=== PATIENT | male | born 1980 | race Caucasian/White ===

== ENCOUNTER 2021-09-06 16:55 | Inpatient (IN) | payer OTHER ==
[2021-09-06 20:44] VITALS: BMI 27.8
[2021-09-06] MEDS ORDERED: guaiFENesin 200 MG/10 ML 10 ML UNIT-DOSE CUPS PO PRN (21:03)
[2021-09-06] MEDS ORDERED: NICOTINE POLACRILEX 2 MG GUM BC PRN (21:03)
[2021-09-06] MEDS ORDERED: ACETAMINOPHEN 325 MG TABLET (FP) PO PRN (21:03)
[2021-09-06] MEDS ORDERED: P-EPHED 60MG/TRIPROLIDI 2.5MG TABLET PO PRN (21:03)
[2021-09-06] MEDS ORDERED: MAGNESIUM HYDROX 2400MG/30ML ORAL SUSPENSION 30 ML CUP PO PRN (21:03)
[2021-09-06] MEDS ORDERED: MAG HYDROX/AL HYDROX/SIMETH 30 ML UNIT-DOSE CUP PO PRN (21:03)
[2021-09-06] MEDS ORDERED: LOPERAMIDE HCL 2 MG CAPSULE PO PRN (21:03)
[2021-09-06] MEDS ORDERED: MAGNESIUM CITRATE 300 ML BOTTLE PO PRN (21:03)
[2021-09-06] MEDS ORDERED: MELATONIN 5 MG TABLETS PO SCH (22:00)
[2021-09-06] MEDS ORDERED: ALBUTEROL SO4 HFA INHALER IH PRN (22:55)
[2021-09-07] MEDS: MELATONIN 5 MG TABLETS PO SCH ×2 (03:01→21:39)
[2021-09-07] MEDS: THIAMINE HCL 100 MG TABLET (FP) PO SCH ×2 (03:06→21:38)
[2021-09-07 10:00] LABS: HEMATOCRIT 41.4 % (35.4-49); HEMOGLOBIN 14.4 GM/dL (11.7-16.9); MCH 31.6 pg (25.7-33.7); MCHC 34.8 g/dl (32.0-35.9); MEAN CELL VOLUME 90.9 fl (80-96); MEAN PLT VOLUME 8.7 fl (7.5-11.1); PLATELET COUNT 216 10^3/uL (134-434); RBC 4.56 M/mm3 (4.00-5.60); RDW 12.7 % (11.9-15.9); WHITE BLOOD COUNT 7.9 K/mm3 (4.0-10.0)
[2021-09-07 10:05] LABS: ALBUMIN 3.5 g/dl (3.4-5.0)
[2021-09-07 10:06] LABS: PH,URINE 6.5 (5.0-8.0); URINE APPEARANCE CLEAR; URINE BILIRUBIN NEGATIVE (NEGATIVE); URINE COLOR YELLOW; URINE GLUCOSE (UA) NEGATIVE (NEGATIVE); URINE KETONE NEGATIVE (NEGATIVE); URINE LEUK ESTERASE NEGATIVE (NEGATIVE); URINE NITRITE NEGATIVE (NEGATIVE); URINE PROTEIN NEGATIVE (NEGATIVE); URINE UROBILINOGEN 0.2 mg/dL (0.2-1.0)
[2021-09-07 10:06] LABS: BLOOD UREA NITROGEN 15.6 mg/dL (7-18)
[2021-09-07 10:09] LABS: CREATININE 0.9 mg/dL (0.55-1.3)
[2021-09-07 10:10] LABS: BILIRUBIN,TOTAL 0.6 mg/dL (0.2-1); TOT PROT 6.3 g/dl (6.4-8.2)
[2021-09-07] MEDS: PRENATAL VITAMINS W/ FOLIC ACID TABLET (FP) PO SCH (10:31)
[2021-09-07] MEDS: BENZTROPINE MESYLATE 1 MG TABLET PO SCH ×2 (10:32→21:38)
[2021-09-07] MEDS: LITHIUM CARBONATE 300 MG CAPSULE PO SCH ×2 (14:48→21:38)
[2021-09-08] MEDS: LITHIUM CARBONATE 300 MG CAPSULE PO SCH ×3 (07:25→21:38)
[2021-09-08] MEDS: PRENATAL VITAMINS W/ FOLIC ACID TABLET (FP) PO SCH (10:44)
[2021-09-08] MEDS: BENZTROPINE MESYLATE 1 MG TABLET PO SCH ×2 (10:44→21:37)
[2021-09-08] MEDS: THIAMINE HCL 100 MG TABLET (FP) PO SCH (21:38)
[2021-09-08] MEDS: MELATONIN 5 MG TABLETS PO SCH (21:38)
[2021-09-09] MEDS: LITHIUM CARBONATE 300 MG CAPSULE PO SCH ×3 (07:09→21:25)
[2021-09-09] MEDS: PRENATAL VITAMINS W/ FOLIC ACID TABLET (FP) PO SCH (10:02)
[2021-09-09] MEDS: BENZTROPINE MESYLATE 1 MG TABLET PO SCH ×2 (10:02→21:25)
[2021-09-09] MEDS: NICOTINE 7 MG/24 HOURS TOPICAL PATCH TD PRN (10:27)
[2021-09-09] MEDS: MELATONIN 5 MG TABLETS PO SCH (21:26)
[2021-09-09] MEDS: THIAMINE HCL 100 MG TABLET (FP) PO SCH (21:26)
[2021-09-10] MEDS: LITHIUM CARBONATE 300 MG CAPSULE PO SCH ×3 (07:15→21:42)
[2021-09-10] MEDS: PRENATAL VITAMINS W/ FOLIC ACID TABLET (FP) PO SCH (10:28)
[2021-09-10] MEDS: BENZTROPINE MESYLATE 1 MG TABLET PO SCH ×2 (10:29→21:42)
[2021-09-10] MEDS: NICOTINE 7 MG/24 HOURS TOPICAL PATCH TD PRN (10:30)
[2021-09-10] MEDS: THIAMINE HCL 100 MG TABLET (FP) PO SCH (21:42)
[2021-09-10] MEDS: MELATONIN 5 MG TABLETS PO SCH (21:42)
[2021-09-11] MEDS: LITHIUM CARBONATE 300 MG CAPSULE PO SCH ×3 (06:31→21:22)
[2021-09-11] MEDS: PRENATAL VITAMINS W/ FOLIC ACID TABLET (FP) PO SCH (09:46)
[2021-09-11] MEDS: BENZTROPINE MESYLATE 1 MG TABLET PO SCH ×2 (09:46→21:22)
[2021-09-11] MEDS: NICOTINE 7 MG/24 HOURS TOPICAL PATCH TD PRN (09:47)
[2021-09-11] MEDS: THIAMINE HCL 100 MG TABLET (FP) PO SCH (21:22)
[2021-09-11] MEDS: MELATONIN 5 MG TABLETS PO SCH (21:22)
[2021-09-12] MEDS: LITHIUM CARBONATE 300 MG CAPSULE PO SCH ×3 (08:03→21:09)
[2021-09-12] MEDS: BENZTROPINE MESYLATE 1 MG TABLET PO SCH ×2 (10:27→21:09)
[2021-09-12] MEDS: PRENATAL VITAMINS W/ FOLIC ACID TABLET (FP) PO SCH (10:27)
[2021-09-12] MEDS: THIAMINE HCL 100 MG TABLET (FP) PO SCH (21:09)
[2021-09-12] MEDS: MELATONIN 5 MG TABLETS PO SCH (21:09)
[2021-09-13] MEDS: LITHIUM CARBONATE 300 MG CAPSULE PO SCH ×3 (07:01→21:16)
[2021-09-13] MEDS: PRENATAL VITAMINS W/ FOLIC ACID TABLET (FP) PO SCH (09:50)
[2021-09-13] MEDS: BENZTROPINE MESYLATE 1 MG TABLET PO SCH ×2 (09:50→21:17)
[2021-09-13] MEDS: NICOTINE 7 MG/24 HOURS TOPICAL PATCH TD PRN (14:24)
[2021-09-13] MEDS: MELATONIN 5 MG TABLETS PO SCH (21:16)
[2021-09-13] MEDS: THIAMINE HCL 100 MG TABLET (FP) PO SCH (21:16)
[2021-09-14] MEDS: LITHIUM CARBONATE 300 MG CAPSULE PO SCH ×3 (06:49→21:23)
[2021-09-14] MEDS: PRENATAL VITAMINS W/ FOLIC ACID TABLET (FP) PO SCH (10:32)
[2021-09-14] MEDS: BENZTROPINE MESYLATE 1 MG TABLET PO SCH ×2 (10:32→21:23)
[2021-09-14] MEDS: hydrOXYzine PAMOATE 25 MG CAPSULE (FP) PO PRN (13:09)
[2021-09-14] MEDS: MELATONIN 5 MG TABLETS PO SCH (21:23)
[2021-09-14] MEDS: THIAMINE HCL 100 MG TABLET (FP) PO SCH (21:23)
[2021-09-14] MEDS: NICOTINE 10 MG CARTRIDGE (INHALER) IH PRN (21:24)
[2021-09-15] MEDS: LITHIUM CARBONATE 300 MG CAPSULE PO SCH ×3 (06:32→21:47)
[2021-09-15] MEDS: BENZTROPINE MESYLATE 1 MG TABLET PO SCH ×2 (09:55→21:47)
[2021-09-15] MEDS: PRENATAL VITAMINS W/ FOLIC ACID TABLET (FP) PO SCH (09:55)
[2021-09-15] MEDS: hydrOXYzine PAMOATE 25 MG CAPSULE (FP) PO PRN ×2 (09:55→21:49)
[2021-09-15] MEDS: THIAMINE HCL 100 MG TABLET (FP) PO SCH (21:47)
[2021-09-15] MEDS: MELATONIN 5 MG TABLETS PO SCH (21:47)
[2021-09-16] MEDS: LITHIUM CARBONATE 300 MG CAPSULE PO SCH ×3 (06:22→21:04)
[2021-09-16] MEDS: BENZTROPINE MESYLATE 1 MG TABLET PO SCH ×2 (10:20→21:04)
[2021-09-16] MEDS: PRENATAL VITAMINS W/ FOLIC ACID TABLET (FP) PO SCH (10:20)
[2021-09-16] MEDS: hydrOXYzine PAMOATE 25 MG CAPSULE (FP) PO PRN (10:22)
[2021-09-16] MEDS: MELATONIN 5 MG TABLETS PO SCH (21:04)
[2021-09-16] MEDS: THIAMINE HCL 100 MG TABLET (FP) PO SCH (21:04)
[2021-09-17] MEDS: LITHIUM CARBONATE 300 MG CAPSULE PO SCH ×3 (06:44→21:56)
[2021-09-17] MEDS: PRENATAL VITAMINS W/ FOLIC ACID TABLET (FP) PO SCH (10:09)
[2021-09-17] MEDS: BENZTROPINE MESYLATE 1 MG TABLET PO SCH ×2 (10:09→21:57)
[2021-09-17] MEDS: hydrOXYzine PAMOATE 25 MG CAPSULE (FP) PO PRN (10:11)
[2021-09-17] MEDS: THIAMINE HCL 100 MG TABLET (FP) PO SCH (21:57)
[2021-09-17] MEDS: MELATONIN 5 MG TABLETS PO SCH (21:57)
[2021-09-18] MEDS: LITHIUM CARBONATE 300 MG CAPSULE PO SCH ×3 (06:51→21:06)
[2021-09-18] MEDS: PRENATAL VITAMINS W/ FOLIC ACID TABLET (FP) PO SCH (10:50)
[2021-09-18] MEDS: BENZTROPINE MESYLATE 1 MG TABLET PO SCH ×2 (10:51→21:05)
[2021-09-18] MEDS: hydrOXYzine PAMOATE 25 MG CAPSULE (FP) PO PRN (10:51)
[2021-09-18] MEDS: IBUPROFEN 400 MG TABLET (FP) PO PRN (18:29)
[2021-09-18] MEDS: MELATONIN 5 MG TABLETS PO SCH (21:06)
[2021-09-18] MEDS: THIAMINE HCL 100 MG TABLET (FP) PO SCH (21:06)
[2021-09-19] MEDS: LITHIUM CARBONATE 300 MG CAPSULE PO SCH ×3 (06:47→21:08)
[2021-09-19] MEDS: BENZTROPINE MESYLATE 1 MG TABLET PO SCH ×2 (09:46→21:07)
[2021-09-19] MEDS: PRENATAL VITAMINS W/ FOLIC ACID TABLET (FP) PO SCH (09:46)
[2021-09-19] MEDS: hydrOXYzine PAMOATE 25 MG CAPSULE (FP) PO PRN (09:47)
[2021-09-19] MEDS: THIAMINE HCL 100 MG TABLET (FP) PO SCH (21:08)
[2021-09-19] MEDS: MELATONIN 5 MG TABLETS PO SCH (21:08)
[2021-09-20] MEDS: LITHIUM CARBONATE 300 MG CAPSULE PO SCH ×3 (06:43→21:24)
[2021-09-20] MEDS: PRENATAL VITAMINS W/ FOLIC ACID TABLET (FP) PO SCH (10:12)
[2021-09-20] MEDS: BENZTROPINE MESYLATE 1 MG TABLET PO SCH ×2 (10:12→21:24)
[2021-09-20] MEDS: hydrOXYzine PAMOATE 25 MG CAPSULE (FP) PO PRN ×2 (10:14→13:12)
[2021-09-20] MEDS: THIAMINE HCL 100 MG TABLET (FP) PO SCH (21:24)
[2021-09-20] MEDS: MELATONIN 5 MG TABLETS PO SCH (21:24)
[2021-09-21] MEDS: LITHIUM CARBONATE 300 MG CAPSULE PO SCH ×3 (06:23→21:30)
[2021-09-21] MEDS: PRENATAL VITAMINS W/ FOLIC ACID TABLET (FP) PO SCH (09:58)
[2021-09-21] MEDS: BENZTROPINE MESYLATE 1 MG TABLET PO SCH ×2 (09:58→21:30)
[2021-09-21] MEDS: hydrOXYzine PAMOATE 25 MG CAPSULE (FP) PO PRN (09:58)
[2021-09-21] MEDS: MELATONIN 5 MG TABLETS PO SCH (21:30)
[2021-09-21] MEDS: THIAMINE HCL 100 MG TABLET (FP) PO SCH (21:30)
[2021-09-22] MEDS: LITHIUM CARBONATE 300 MG CAPSULE PO SCH ×3 (06:42→21:15)
[2021-09-22] MEDS: PRENATAL VITAMINS W/ FOLIC ACID TABLET (FP) PO SCH (10:55)
[2021-09-22] MEDS: BENZTROPINE MESYLATE 1 MG TABLET PO SCH ×2 (10:57→21:16)
[2021-09-22] MEDS: hydrOXYzine PAMOATE 25 MG CAPSULE (FP) PO PRN ×2 (10:58→14:13)
[2021-09-22] MEDS: THIAMINE HCL 100 MG TABLET (FP) PO SCH (21:16)
[2021-09-22] MEDS: MELATONIN 5 MG TABLETS PO SCH (21:16)
[2021-09-23] MEDS: LITHIUM CARBONATE 300 MG CAPSULE PO SCH ×3 (06:41→21:18)
[2021-09-23] MEDS: PRENATAL VITAMINS W/ FOLIC ACID TABLET (FP) PO SCH (10:57)
[2021-09-23] MEDS: BENZTROPINE MESYLATE 1 MG TABLET PO SCH ×2 (10:57→21:18)
[2021-09-23] MEDS: THIAMINE HCL 100 MG TABLET (FP) PO SCH (21:19)
[2021-09-23] MEDS: MELATONIN 5 MG TABLETS PO SCH (21:19)
[2021-09-24] MEDS: LITHIUM CARBONATE 300 MG CAPSULE PO SCH ×3 (06:30→21:39)
[2021-09-24] MEDS: PRENATAL VITAMINS W/ FOLIC ACID TABLET (FP) PO SCH (11:01)
[2021-09-24] MEDS: BENZTROPINE MESYLATE 1 MG TABLET PO SCH ×2 (11:01→21:38)
[2021-09-24] MEDS: MELATONIN 5 MG TABLETS PO SCH (21:38)
[2021-09-24] MEDS: THIAMINE HCL 100 MG TABLET (FP) PO SCH (21:39)
[2021-09-25] MEDS: LITHIUM CARBONATE 300 MG CAPSULE PO SCH ×3 (06:30→21:29)
[2021-09-25] MEDS: PRENATAL VITAMINS W/ FOLIC ACID TABLET (FP) PO SCH (10:03)
[2021-09-25] MEDS: BENZTROPINE MESYLATE 1 MG TABLET PO SCH ×2 (10:04→21:29)
[2021-09-25] MEDS: NICOTINE 10 MG CARTRIDGE (INHALER) IH PRN (15:16)
[2021-09-25] MEDS: MELATONIN 5 MG TABLETS PO SCH (21:29)
[2021-09-25] MEDS: THIAMINE HCL 100 MG TABLET (FP) PO SCH (21:29)
[2021-09-26] MEDS: LITHIUM CARBONATE 300 MG CAPSULE PO SCH ×3 (06:02→21:47)
[2021-09-26] MEDS: BENZTROPINE MESYLATE 1 MG TABLET PO SCH ×2 (10:58→21:47)
[2021-09-26] MEDS: PRENATAL VITAMINS W/ FOLIC ACID TABLET (FP) PO SCH (10:59)
[2021-09-26] MEDS ORDERED: PALIPERIDONE PALMITATE (INVEGA) 234 MG/1.5 ML SYRINGE IM ONE (12:00)
[2021-09-26] MEDS: MELATONIN 5 MG TABLETS PO SCH (21:47)
[2021-09-26] MEDS: THIAMINE HCL 100 MG TABLET (FP) PO SCH (21:47)
[2021-09-27] MEDS: LITHIUM CARBONATE 300 MG CAPSULE PO SCH ×3 (06:23→21:10)
[2021-09-27] MEDS: PRENATAL VITAMINS W/ FOLIC ACID TABLET (FP) PO SCH (09:47)
[2021-09-27] MEDS: BENZTROPINE MESYLATE 1 MG TABLET PO SCH ×2 (09:47→21:10)
[2021-09-27] MEDS: IBUPROFEN 400 MG TABLET (FP) PO PRN (21:10)
[2021-09-27] MEDS: THIAMINE HCL 100 MG TABLET (FP) PO SCH (21:10)
[2021-09-27] MEDS: MELATONIN 5 MG TABLETS PO SCH (21:10)
[2021-09-28] MEDS: LITHIUM CARBONATE 300 MG CAPSULE PO SCH ×3 (06:14→21:34)
[2021-09-28] MEDS: BENZTROPINE MESYLATE 1 MG TABLET PO SCH ×2 (09:40→21:34)
[2021-09-28] MEDS: PRENATAL VITAMINS W/ FOLIC ACID TABLET (FP) PO SCH (09:40)
[2021-09-28] MEDS: THIAMINE HCL 100 MG TABLET (FP) PO SCH (21:34)
[2021-09-28] MEDS: MELATONIN 5 MG TABLETS PO SCH (21:34)
[2021-09-29] MEDS: LITHIUM CARBONATE 300 MG CAPSULE PO SCH ×3 (06:13→21:29)
[2021-09-29] MEDS: PRENATAL VITAMINS W/ FOLIC ACID TABLET (FP) PO SCH (10:38)
[2021-09-29] MEDS: BENZTROPINE MESYLATE 1 MG TABLET PO SCH ×2 (10:38→21:29)
[2021-09-29] MEDS: THIAMINE HCL 100 MG TABLET (FP) PO SCH (21:28)
[2021-09-29] MEDS: MELATONIN 5 MG TABLETS PO SCH (21:28)
[2021-09-30] MEDS: LITHIUM CARBONATE 300 MG CAPSULE PO SCH ×3 (05:57→21:12)
[2021-09-30 06:56] VITALS: RESP 18
[2021-09-30] MEDS: PRENATAL VITAMINS W/ FOLIC ACID TABLET (FP) PO SCH (10:52)
[2021-09-30] MEDS: BENZTROPINE MESYLATE 1 MG TABLET PO SCH ×2 (11:20→21:12)
[2021-09-30] MEDS: MELATONIN 5 MG TABLETS PO SCH (21:12)
[2021-09-30] MEDS: hydrOXYzine PAMOATE 25 MG CAPSULE (FP) PO PRN (21:12)
[2021-09-30] MEDS: THIAMINE HCL 100 MG TABLET (FP) PO SCH (21:12)
[2021-10-01] MEDS: LITHIUM CARBONATE 300 MG CAPSULE PO SCH ×3 (06:04→21:34)
[2021-10-01] MEDS: BENZTROPINE MESYLATE 1 MG TABLET PO SCH ×2 (09:47→21:34)
[2021-10-01] MEDS: PRENATAL VITAMINS W/ FOLIC ACID TABLET (FP) PO SCH (09:47)
[2021-10-01] MEDS: MELATONIN 5 MG TABLETS PO SCH (21:34)
[2021-10-01] MEDS: THIAMINE HCL 100 MG TABLET (FP) PO SCH (21:35)
[2021-10-02] MEDS: LITHIUM CARBONATE 300 MG CAPSULE PO SCH ×3 (06:36→21:45)
[2021-10-02] MEDS: PRENATAL VITAMINS W/ FOLIC ACID TABLET (FP) PO SCH (09:54)
[2021-10-02] MEDS: BENZTROPINE MESYLATE 1 MG TABLET PO SCH ×2 (09:55→21:45)
[2021-10-02] MEDS: NICOTINE 7 MG/24 HOURS TOPICAL PATCH TD PRN (09:57)
[2021-10-02] MEDS: MELATONIN 5 MG TABLETS PO SCH (21:45)
[2021-10-02] MEDS: hydrOXYzine PAMOATE 25 MG CAPSULE (FP) PO PRN (21:46)
[2021-10-02] MEDS: THIAMINE HCL 100 MG TABLET (FP) PO SCH (21:46)
[2021-10-03] MEDS: LITHIUM CARBONATE 300 MG CAPSULE PO SCH ×3 (06:35→21:41)
[2021-10-03] MEDS: PRENATAL VITAMINS W/ FOLIC ACID TABLET (FP) PO SCH (10:29)
[2021-10-03] MEDS: BENZTROPINE MESYLATE 1 MG TABLET PO SCH ×2 (10:29→21:41)
[2021-10-03] MEDS: hydrOXYzine PAMOATE 25 MG CAPSULE (FP) PO PRN (17:00)
[2021-10-03] MEDS: THIAMINE HCL 100 MG TABLET (FP) PO SCH (21:41)
[2021-10-03] MEDS: MELATONIN 5 MG TABLETS PO SCH (21:41)
[2021-10-04] MEDS: LITHIUM CARBONATE 300 MG CAPSULE PO SCH (06:41)
[2021-10-04 09:02] VITALS: BP 112/72; PULSE 77; TEMP 97.8
[2021-10-04] MEDS: PRENATAL VITAMINS W/ FOLIC ACID TABLET (FP) PO SCH (09:31)
[2021-10-04] MEDS: BENZTROPINE MESYLATE 1 MG TABLET PO SCH (09:31)
== END 2021-10-04 09:48 | disposition home or self-care (01) | DRG 895 ==
LOC: YASAS 16:55 → Y3W 09-07 01:23
PROVIDERS: ADMIT Allergy & Immunology; ATTEND Psychiatry & Neurology Pain Medicine
PROC: HZ42ZZZ Group Counseling for Substance Abuse Treatment, Cognitive-Behavioral (ICD-10-PCS; principal; 2021-09-07)
DX: F10.20 Alcohol dependence, uncomplicated (principal); F12.10 Cannabis abuse, uncomplicated; F20.9 Schizophrenia, unspecified; F17.210 Nicotine dependence, cigarettes, uncomplicated; Z56.0 Unemployment, unspecified
CPT/HCPCS: 36415; 80053; 80178; 81003; 85027; 86780; C9803-CS; J2426; U0003; U0005